=== PATIENT | male | born 1965 | race Caucasian/White ===

== ENCOUNTER 2017-12-31 10:54 | Emergency (ER) | payer BC ==
[2017-12-31 11:18] VITALS: RESP 18; TEMP 98
[2017-12-31] MEDS ORDERED: SODIUM CHLORIDE 0.9% 1,000 ML IV STA ×2 (11:39)
[2017-12-31] MEDS ORDERED: MORPHINE SULFATE 4 MG/ML SYRINGE IVP ONE (11:40)
[2017-12-31] MEDS ORDERED: KETOROLAC 30 MG/ML 1 ML VIAL IVP STA (11:40)
--- NOTE | 2017-12-31 11:42 | ED ---
General Adult HPI - General Chief complaint: Back Pain/Injury Stated complaint: Back Pain Time Seen by Provider: 12/31/17 11:23 Source: patient, RN notes reviewed, old records reviewed Mode of arrival: ambulatory Limitations: no limitations - History of Present Illness Initial comments: Patient is a 52-year-old male chief complaint of left sided mid back pain. Patient reports that he's had a history of pulmonary and wasn't in the past and is concerned he may have another one. Patient states that the symptoms started last night. He reports that this is similar pain as he had when he had the initial PE. Patient states that he does have some chest pain associated with this back pain. No significant shortness of breath. No hemoptysis. Patient has not been on blood thinners for a year. Patient also states that certain movements will exacerbate the pain. Denies any heavy lifting or does activity prior to the onset of the symptoms. - Related Data Previous Rx's Medication Instructions Recorded Cephalexin [Keflex] 500 mg PO Q6H #40 cap 09/16/17 HYDROcodone/APAP 5-325MG [[place] 1 tab PO Q6HR PRN #20 tab 09/16/17 5-325] Ibuprofen [Motrin] 600 mg PO Q6HR PRN #30 tab 09/16/17 Cyclobenzaprine [Flexeril] 10 mg PO TID #15 tab 12/31/17 Allergies Allergy/AdvReac Type Severity Reaction Status Date / Time rivaroxaban [From Xarelto] Allergy Unknown Verified 12/31/17 11:18 Review of Systems ROS Statement: Those systems with pertinent positive or pertinent negative responses have been documented in the HPI. ROS Other: All systems not noted in ROS Statement are negative. Past Medical History Past Medical History: Pulmonary Embolus (PE) History of Any Multi-Drug Resistant Organisms: None Reported Past Surgical History: No Surgical Hx Reported Past Psychological History: No Psychological Hx Reported Smoking Status: Never smoker Past Alcohol Use History: Rare Past Drug Use History: None Reported General Exam - General Exam Comments Initial Comments: 52-year-old male. Alert and oriented. Moderate discomfort. Limitations: no limitations General appearance: alert, in no apparent distress Head exam: Present: atraumatic, normocephalic, normal inspection Eye exam: Present: normal appearance, PERRL, EOMI. Absent: scleral icterus, conjunctival injection, periorbital swelling ENT exam: Present: normal exam, mucous membranes moist Neck exam: Present: normal inspection. Absent: tenderness, meningismus, lymphadenopathy Respiratory exam: Present: normal lung sounds bilaterally. Absent: respiratory distress, wheezes, rales, rhonchi, stridor Cardiovascular Exam: Present: regular rate, normal rhythm, normal heart sounds. Absent: systolic murmur, diastolic murmur, rubs, gallop, clicks GI/Abdominal exam: Present: soft, normal bowel sounds. Absent: distended, tenderness, guarding, rebound, rigid Extremities exam: Present: normal inspection, full ROM, normal capillary refill. Absent: tenderness, pedal edema, joint swelling, calf tenderness Back exam: Present: normal inspection Course Vital Signs 12/31/17 12/31/17 11:15 14:00 Temperature 98 F Pulse Rate 63 54 L Respiratory 18 18 Rate Blood Pressure 154/78 127/72 O2 Sat by Pulse 99 99 Oximetry Medical Decision Making - Medical Decision Making Given the timeframe patient's symptoms first cardiac and to expect changes in EKG or cardiac enzymes. Patient for a CT results and needs a follow-up. He'll be discharged to [facility]. - Lab Data Result diagrams: 12/31/17 11:50 12/31/17 11:50 Lab Results 12/31/17 12/31/17 12/31/17 Range/Units 11:50 11:50 11:50 WBC 8.0 (3.8-10.6) k/uL RBC 4.88 (4.30-5.90) m/uL Hgb 14.8 (13.0-17.5) gm/dL Hct 41.9 (39.0-53.0) % MCV 85.8 (80.0-100.0) fL MCH 30.3 (25.0-35.0) pg MCHC 35.3 (31.0-37.0) g/dL RDW 13.3 (11.5-15.5) % Plt Count 164 (150-450) k/uL Neutrophils % 76 % Lymphocytes % 15 % Monocytes % 5 % Eosinophils % 3 % Basophils % 0 % Neutrophils # 6.1 (1.3-7.7) k/uL Lymphocytes # 1.2 (1.0-4.8) k/uL Monocytes # 0.4 (0-1.0) k/uL Eosinophils # 0.3 (0-0.7) k/uL Basophils # 0.0 (0-0.2) k/uL PT (9.0-12.0) sec INR (<1.2) APTT (22.0-30.0) sec D-Dimer (<0.60) mg/L FEU Sodium 141 (137-145) mmol/L Potassium 4.1 (3.5-5.1) mmol/L Chloride 103 (98-107) mmol/L Carbon Dioxide 26 (22-30) mmol/L Anion Gap 12 mmol/L BUN 14 (9-20) mg/dL Creatinine 0.96 (0.66-1.25) mg/dL Est GFR (CKD-EPI)AfAm >90 (>60 ml/min/1.73 sqM) Est GFR (CKD-EPI)NonAf >90 (>60 ml/min/1.73 sqM) Glucose 98 (74-99) mg/dL Calcium 9.2 (8.4-10.2) mg/dL Magnesium 2.0 (1.6-2.3) mg/dL Total Bilirubin 0.9 (0.2-1.3) mg/dL AST 23 (17-59) U/L ALT 28 (21-72) U/L Alkaline Phosphatase 78 (38-126) U/L Total Creatine Kinase 171 H (55-170) U/L CK-MB (CK-2) 1.1 (0.0-2.4) ng/mL CK-MB (CK-2) Rel Index 0.6 Troponin I <0.012 (0.000-0.034) ng/mL Total Protein 7.0 (6.3-8.2) g/dL Albumin 4.2 (3.5-5.0) g/dL Amylase 40 (30-110) U/L Lipase 83 (23-300) U/L 12/31/17 Range/Units 11:50 WBC (3.8-10.6) k/uL RBC (4.30-5.90) m/uL Hgb (13.0-17.5) gm/dL Hct (39.0-53.0) % MCV (80.0-100.0) fL MCH (25.0-35.0) pg MCHC (31.0-37.0) g/dL RDW (11.5-15.5) % Plt Count (150-450) k/uL Neutrophils % % Lymphocytes % % Monocytes % % Eosinophils % % Basophils % % Neutrophils # (1.3-7.7) k/uL Lymphocytes # (1.0-4.8) k/uL Monocytes # (0-1.0) k/uL Eosinophils # (0-0.7) k/uL Basophils # (0-0.2) k/uL PT 10.1 (9.0-12.0) sec INR 1.0 (<1.2) APTT 22.4 (22.0-30.0) sec D-Dimer 0.25 (<0.60) mg/L FEU Sodium (137-145) mmol/L Potassium (3.5-5.1) mmol/L Chloride (98-107) mmol/L Carbon Dioxide (22-30) mmol/L Anion Gap mmol/L BUN (9-20) mg/dL Creatinine (0.66-1.25) mg/dL Est GFR (CKD-EPI)AfAm (>60 ml/min/1.73 sqM) Est GFR (CKD-EPI)NonAf (>60 ml/min/1.73 sqM) Glucose (74-99) mg/dL Calcium (8.4-10.2) mg/dL Magnesium (1.6-2.3) mg/dL Total Bilirubin (0.2-1.3) mg/dL AST (17-59) U/L ALT (21-72) U/L Alkaline Phosphatase (38-126) U/L Total Creatine Kinase (55-170) U/L CK-MB (CK-2) (0.0-2.4) ng/mL CK-MB (CK-2) Rel Index Troponin I (0.000-0.034) ng/mL Total Protein (6.3-8.2) g/dL Albumin (3.5-5.0) g/dL Amylase (30-110) U/L Lipase (23-300) U/L 12/31/17 12:46 EKG performed at 1127 shows sinus rhythm, normal EKG. Ventricular rate 61 bpm. DC interval 146. QRS 98. QTQTC's 46/408. - Radiology Data Radiology results: report reviewed Chronic appearing changes without any acute cardio primary process. No evidence of pulmonary embolus. Small hiatal hernia. Circumferential wall thickening of the distal esophagus could represent esophagitis or neoplasm. Direct visualization as clinically indicated. Borderline mildly enlarged subcarinal and right hilar lymph nodes probably reacted postinflammatory. In the right hilum. Lymph node measures 1.7 cm. 3 month follow-up exam recommended to ensure stability and resolution. Disposition Clinical Impression: Esophagitis, Back pain Disposition: HOME SELF-CARE Condition: Good Instructions: Back Pain (ED) Additional Instructions: Patient has follow-up with primary care provider in regards to the computed tomography scan findings about her esoph esophagus and mildly enlarged lymph nodes. Recommended follow-up exam in 3 months to ensure no changes. Patient can take muscle relaxers as prescribed. Return to the emergency department if any alarming signs or symptoms occur. Prescriptions: Cyclobenzaprine [Flexeril] 10 mg PO TID #15 tab Is patient prescribed a controlled substance at d/c from ED?: No If prescribed controlled substance>3 days was MAPS reviewed?: No When asked, does pt state using other controlled substances?: No Referrals: Tao Wyman MD [Primary Care Provider] - 1-2 days Time of Disposition: 14:30
[2017-12-31 12:15] LABS: Basophils % (A) 0 %; Eosinophils # (A) 0.3 k/uL (0-0.7); Eosinophils % (A) 3 %; HCT 41.9 % (39.0-53.0); HGB 14.8 gm/dL (13.0-17.5); Lymphocytes # (A) 1.2 k/uL (1.0-4.8); Lymphocytes % (A) 15 %; MCH 30.3 pg (25.0-35.0); MCHC 35.3 g/dL (31.0-37.0); MCV 85.8 fL (80.0-100.0); Mean Platelet Volume 6.9; Monocytes # (A) 0.4 k/uL (0-1.0); Monocytes % (A) 5 %; Neutrophils # (A) 6.1 k/uL (1.3-7.7); Neutrophils % (A) 76 %; Platelet Count 164 k/uL (150-450); RBC 4.88 m/uL (4.30-5.90); RDW 13.3 % (11.5-15.5)
--- NOTE | 2017-12-31 12:18 | XR ---
EXAMINATION TYPE: XR chest 2V DATE OF EXAM: 12/31/2017 COMPARISON: None HISTORY: 52-year-old male with chest pain TECHNIQUE: Frontal and lateral views FINDINGS: The heart is normal size. Aorta and pulmonary vasculature within normal limits. Mild diffuse intersti tial prominence as a chronic appearance. No consolidation or pleural effusion. IMPRESSION: Chronic appearing changes without acute cardiopulmonary process.
[2017-12-31 12:26] LABS: ALT 28 U/L (21-72); AST 23 U/L (17-59); Albumin 4.2 g/dL (3.5-5.0); Alkaline Phosphatase 78 U/L (38-126); Amylase 40 U/L (30-110); Anion Gap 12 mmol/L; Blood Urea Nitrogen 14 mg/dL (9-20); Calcium 9.2 mg/dL (8.4-10.2); Carbon Dioxide 26 mmol/L (22-30); Chloride 103 mmol/L (98-107); Glucose 98 mg/dL (74-99); Lipase 83 U/L (23-300); Potassium 4.1 mmol/L (3.5-5.1); Sodium 141 mmol/L (137-145); Total Bilirubin 0.9 mg/dL (0.2-1.3)
[2017-12-31 12:39] LABS: Creatine Kinase 171 U/L (55-170)
[2017-12-31 12:53] LABS: Creatine Kinase MB 1.1 ng/mL (0.0-2.4); Troponin I <0.012 ng/mL (0.000-0.034)
[2017-12-31 13:02] LABS: D-Dimer 0.25 mg/L FEU (<0.60); Prothrombin Time 10.1 sec (9.0-12.0)
[2017-12-31 13:03] LABS: Partial Thromboplastin Time 22.4 sec (22.0-30.0)
[2017-12-31] MEDS ORDERED: RX INFO: IV CONTRAST WAS GIVEN 1 EACH MISC MISCELLANE PRN ×2 (13:25→13:40)
[2017-12-31 14:09] VITALS: BP 127/72; PULSE 54
--- NOTE | 2017-12-31 14:19 | CT ---
EXAMINATION TYPE: CT chest angio for PE DATE OF EXAM: 12/31/2017 COMPARISON: NONE HISTORY: 52-year-old male Back pain that radiates into chest TECHNIQUE: Contiguous axial scanning of the chest performed with IV Contrast, patient injected with 1 00 mL of Isovue 370. Coronal/sagittal MIP reconstructions performed. CT DLP: 576.0 mGycm Automated exposure control for dose reduction was used. FINDINGS: Heart normal size without pericardial effusion. Aorta normal caliber with conventional arch vessel branching anatomy. Scattered prominent mediastinal lymph nodes measure up to 9 mm in the AP window and mildly enlarged i n the subcarinal region measuring 1.7 cm. Enlarged right hilar lymph node measures 1.7 cm. Mild bilat eral gynecomastia. Satisfactory opacification of the pulmonary arterial system without evidence for pulmonary embolus. Strandy atelectasis in the bilateral lower lobes. No consolidation or pleural effusion. Underlying hiatal hernia with moderate circumferential wall thickening of the lower esophagus, refer to axial image 112. Visualized upper abdomen otherwise shows no gross abnormality. Bones: Endplate spondylosis mid to lower thoracic spine. IMPRESSION: 1. NO EVIDENCE FOR PULMONARY EMBOLUS. 2. SMALL HIATAL HERNIA. THERE IS CIRCUMFERENTIAL WALL THICKENING OF THE DISTAL ESOPHAGUS THAT COULD R EPRESENT ESOPHAGITIS OR NEOPLASM. DIRECT VISUALIZATION CLINICALLY INDICATED. 3. BORDERLINE AND MILDLY ENLARGED SUBCARINAL AND RIGHT HILAR LYMPH NODES PROBABLY REACTIVE/POST INFLA MMATORY. IN THE RIGHT HILUM, LYMPH NODE MEASURES UP TO 1.7 CM. 3 MONTH FOLLOW-UP EXAM RECOMMENDED TO ENSURE STABILITY/RESOLUTION.
== END 2017-12-31 14:45 | disposition home or self-care (01) ==
LOC: EC 10:54
DX: K20.9 Esophagitis, unspecified (principal); M54.9 Dorsalgia, unspecified; K44.9 Diaphragmatic hernia without obstruction or gangrene; R59.0 Localized enlarged lymph nodes; Z88.8 Allergy status to other drugs, medicaments and biological substances
CPT/HCPCS: 36415; 93005; 85379; 80053; 82150; 82550; 82553; 83690; 83735; 84484; 85025; 85610; 85730; 71046; 71275; 99284; 96374; 96375; 96361 ×3; J2270; J1885; Q9967

== ENCOUNTER 2018-07-18 10:25 | Day surgery (SDC) | payer BC ==
[2018-07-16 15:04] VITALS: BMI 34.2
[~2018-07-18 10:25] MED LIST: LACTATED RINGERS 1,000 ML IV SCH; LIDOCAINE 1% 20 ML VIAL (10MG/ML) FOR IV START INTRADERMA PRN
[2018-07-18 11:41] VITALS: RESP 16; TEMP 98.6
[2018-07-18] MEDS ORDERED: PROPOFOL 10 MG/ML 20 ML VIAL IV ONE (11:50)
--- NOTE | 2018-07-18 11:58 | P.PCN ---
Date of Procedure: 07/18/18 Procedure(s) Performed: BRIEF HISTORY: Patient is a 53-year-old, pleasant, , white male, scheduled for an upper endoscopy as a part of evaluation of atypical chest pain for the last 3 months duration. He denies any heartburn.. PROCEDURE PERFORMED: Esophagogastroduodenoscopy with biopsy. PREOPERATIVE DIAGNOSIS: Atypical chest pain. IV sedation per anesthesia. PROCEDURE: After informed consent was obtained, the patient was brought into the endoscopy unit. IV sedation was administered by Anesthesia under continuous monitoring. Initially the Olympus GIF-140 video endoscope was inserted into the mouth. Esophagus intubated without any difficulty. It was gradually advanced into the stomach and duodenum and carefully examined. The bulb and the second part of the duodenum appeared normal. The scope at this time was withdrawn to the stomach, adequately insufflated with air, and upon careful examination, mucosa of the antrum, body, cardia and the fundus appeared normal. Small gastric polyps noted in the proximal body of the stomach which were biopsied. The scope was then withdrawn into the esophagus. The GE junction was located at 39 cm from the incisors. Small sliding Hiatal hernia noted. There were linear erosions and ulcerations in the distal esophagus consistent with LA grade C reflux esophagitis. Rest of the esophagus appeared normal patient tolerated the procedure well. IMPRESSION: 1. Multiple erosions or ulcerations in the distal esophagus consistent with LA grade C reflux esophagitis 2. Small gastric polyps 3. Small sliding Hiatal hernia. RECOMMENDATIONS: The findings of this examination were discussed with the patient as well as his family. He was advised to follow with the biopsy results. He was in her perception for Prilosec 20 mg daily to be taken half hour before breakfast and follow antireflux measures. He will need to have a repeat upper endoscopy in 4-6 months after aggressive acid suppressive therapy to ensure adequate healing and rule out Wood's esophagus.
[2018-07-18 12:21] VITALS: BP 136/81; PULSE 60
== END 2018-07-18 12:47 | disposition home or self-care (01) ==
LOC: ORWHC2ENDO 10:25
PROVIDERS: ATTEND Internal Medicine Gastroenterology
DX: K29.50 Unspecified chronic gastritis without bleeding (principal); K31.7 Polyp of stomach and duodenum; K44.9 Diaphragmatic hernia without obstruction or gangrene; K22.10 Ulcer of esophagus without bleeding; K21.0 Gastro-esophageal reflux disease with esophagitis; Z86.711 Personal history of pulmonary embolism; Z88.8 Allergy status to other drugs, medicaments and biological substances
CPT/HCPCS: 88305; 43239; J2704

== ENCOUNTER → 2018-08-02 | Outpatient (CLI) | payer BC ==
--- NOTE | 2018-08-03 09:21 | XR ---
EXAMINATION TYPE: XR chest 2V DATE OF EXAM: 08/02/2018 COMPARISON: 12/31/2017 TECHNIQUE: PA and lateral views submitted. HISTORY: Shortness of breath FINDINGS: The lungs are clear and there is no pneumothorax, pleural effusion, or focal pneumonia. Arthropathy of the shoulders. IMPRESSION: 1. No acute process.
--- NOTE | 2018-08-03 10:00 | XR ---
EXAMINATION TYPE: XR ribs bilateral DATE OF EXAM: 08/02/2018 COMPARISON: NONE HISTORY: Pain TECHNIQUE: 8 views of the ribs are submitted FINDINGS: Arthropathy of the shoulders noted. No acute displaced rib fracture. Visualized lung billings are clear. IMPRESSION: 1. No acute displaced rib fracture.
== END | disposition home or self-care (01) ==
LOC: RADXRMAIN 16:31
PROVIDERS: ATTEND Internal Medicine Geriatric Medicine
DX: R06.02 Shortness of breath (principal)
CPT/HCPCS: 71046; 71110

== ENCOUNTER 2021-12-05 11:41 | Emergency (ER) | payer BC ==
[2021-12-05 12:07] VITALS: BP 140/86; RESP 18
--- NOTE | 2021-12-05 13:41 | XR ---
EXAMINATION TYPE: XR hand complete LT DATE OF EXAM: 12/05/2021 12:31 PM INDICATION: Patient age:Male; 56 years old; Reason for study: pain hit metal roof; COMPARISON: None TECHNIQUE: 3 views of the left hand were obtained. FINDINGS: Posterior dislocation of the distal phalanx of the distal interphalangeal joint of the fift h digit. No acute osseous pathology is identified. There is mild soft tissue swelling. IMPRESSION: Posterior medial dislocation of the distal phalanx of the left fifth digit at the distal interphalang eal joint without evidence of fracture.
[2021-12-05] MEDS ORDERED: LIDOCAINE 1% INJ 10MG/ML (5 ML VIAL-PF) SQ ONE (14:49)
--- NOTE | 2021-12-05 16:17 | ED ---
General Adult HPI - General Chief complaint: Extremity Injury, Upper Stated complaint: Lt Pinkie Pain Time Seen by Provider: 12/05/21 15:00 Source: patient, RN notes reviewed, old records reviewed Mode of arrival: ambulatory Limitations: no limitations - History of Present Illness Initial comments: Patient is a 56-year-old male with past medical history remarkable for angina who presents with left pinky finger injury. He was working on a metal roof and his left hand on the rib of the metal roof at approximately 11 AM this morning. He is having pain over the distal aspect of his left pinky finger with reduced range of motion. There is swelling. Was concerned he may have broken it or dislocated it. His no other acute complaints at this time. No laceration or other injury. Presents for further evaluation. - Related Data Home Medications Medication Instructions Recorded Confirmed No Known Home Medications 07/16/18 12/05/21 Allergies Allergy/AdvReac Type Severity Reaction Status Date / Time rivaroxaban [From Xarelto] Allergy "I didn't Verified 12/05/21 16:11 feel good,nausea,dizzy" Review of Systems ROS Statement: Those systems with pertinent positive or pertinent negative responses have been documented in the HPI. Review of Systems: CONST: Denies fever EYES: Denies blurry vision ENT: Denies nasal congestion C/V: Denies Chest pain RESP: Denies shortness of breath GI: Denies abdominal pain : Denies dysuria SKIN: Denies rash. MSK: Left pinky finger pain. NEURO: Denies headache ROS Other: All systems not noted in ROS Statement are negative. Past Medical History Past Medical History: Chest Pain / Angina, Pulmonary Embolus (PE) Additional Past Medical History / Comment(s): "I feel like there pressure on my chest and I don't get enough pressure when I breathe",PE 2018 History of Any Multi-Drug Resistant Organisms: None Reported, MRSA Date of last positivie culture/infection: 01/04/19 MDRO Source:: TOE Past Surgical History: No Surgical Hx Reported Additional Past Surgical History / Comment(s): bx on lymphnode Past Anesthesia/Blood Transfusion Reactions: No Reported Reaction Additional Past Anesthesia/Blood Transfusion Reaction / Comment(s): pt adopted- unknown family hx Past Psychological History: No Psychological Hx Reported Past Alcohol Use History: Rare Past Drug Use History: None Reported - Past Family History Father History Unknown: Yes General Exam - General Exam Comments Initial Comments: General: Appears in mild distress secondary to left pinky finger. HEAD: Normal with no signs of head trauma. EYES: EOMI ENT: Hearing grossly intact, normal oropharynx. RESPIRATORY: No increased work of breathing. C/V: S1 and S2 auscultated. Peripheral pulses 2+ intact. ABD: Abdomen is nondistended. EXT: Reduced range of motion of the left distal finger. Appears dislocated. Good capillary refill. Neurovascular intact. SKIN: No rashes or lesions observed on exposed skin. NEURO: Alert and oriented 4. Limitations: no limitations Course Vital Signs 12/05/21 12/05/21 12:03 16:55 Temperature 98.1 F 98.2 F Pulse Rate 66 68 Respiratory 18 18 Rate Blood Pressure 140/86 140/86 O2 Sat by Pulse 96 97 Oximetry Procedures - Orthopedic Joint Reduction Joint #1 Consent Obtained: verbal consent Side: left Joint Reduction Location: finger Analgesia: digital block Local Anesthetic Used: Lidocaine 1% Amount of Anesthetic Used (mLs): 4 Technique Used: traction/counter-traction Post-Reduction Neuro Exam: intact Post-Reduction Vascular Exam: intact Post Reduction X-Ray Obtained: Yes Post Reduction X-Ray Results: reduced Splint Applied: Yes Patient Tolerated Procedure: well Medical Decision Making - Medical Decision Making Based on the patient's presentation and physical exam, and concern for left pinky finger dislocation or injury. We will obtain an x-ray. Refuses analgesic medications at this time. X-ray revealed posterior medial dislocation of the distal phalanx of the left fifth digit at the DIP without fracture. I discussed the findings with the patient. A digit block of the fifth digit was performed with lidocaine. Patient tolerated the procedure well. Anatomic reduction was performed. Repeat x-ray reveals successful reduction. He was placed in a finger splint. Was discharged home in good condition. I instructed the patient to follow up with their PCP in the next 3 days. I explained that the patient should return to the emergency department if they experience any worsening symptoms. Strict return precautions were discussed with the patient. The patient expressed understanding of these instructions. I an swered all questions that the patient had. The patient was discharged home in good condition with their prescriptions and follow up information. Disposition Clinical Impression: Dislocation of distal interphalangeal (DIP) joint of finger Disposition: HOME SELF-CARE Condition: Good Instructions (If sedation given, give patient instructions): Closed Reduction (ED), Finger Dislocation (ED) Is patient prescribed a controlled substance at d/c from ED?: No Referrals: Tao Wyman MD [Primary Care Provider] - 1-2 days Time of Disposition: 16:15
--- NOTE | 2021-12-05 16:24 | XR ---
EXAMINATION TYPE: XR hand limited LT DATE OF EXAM: 12/05/2021 COMPARISON: NONE HISTORY: Post reduction TECHNIQUE: 3 views FINDINGS: There is anatomic reduction of the DIP joint of the little finger left hand. No fracture li ne seen. IMPRESSION: Anatomic reduction.
[2021-12-05 16:56] VITALS: PULSE 68; TEMP 98.2
== END 2021-12-05 16:55 | disposition home or self-care (01) ==
LOC: EC 11:41
DX: S63.297A Dislocation of distal interphalangeal joint of left little finger, initial encounter (principal); Z86.711 Personal history of pulmonary embolism; W22.8XXA Striking against or struck by other objects, initial encounter; Y99.0 Civilian activity done for income or pay
CPT/HCPCS: 99283; 26770; 73120; 73130; J2001